=== PATIENT | male | born 1995 | race Caucasian/White ===

== ENCOUNTER → 2016-07-20 | Outpatient (CLI) | payer OTHER, BC ==
[~2016-07-20] MED LIST: ESCI1TAB10 PO; HYDR1CAP85 PO; IBUP-1050 PO; PRLSR20 PO; PSEU-170 PO
--- NOTE | 2016-07-20 14:14 | DIAGNOSTIC IMAGING REPORT ---
LEFT HAND 3 VIEWS HISTORY: DORSAL HAND/FINGER PAIN COMPARISON: None. FINDINGS: There is no fracture or dislocation. No erosions identified. Mild soft tissue swelling within the dorsum of the hand and index finger. No radiopaque foreign bodies. IMPRESSION: Mild soft tissue swelling. No fractures. Electronically signed by: Freddy Godinez M.D. 07/20/2016 2:13 PM Dictated Date/Time: 07/20/2016 2:12 PM
== END | disposition home or self-care (01) ==
LOC: C.RAD1850 13:52
PROVIDERS: ATTEND Nurse Practitioner Adult Health
DX: M79.642 Pain in left hand (principal); M79.645 Pain in left finger(s)

== ENCOUNTER 2016-11-20 14:27 | Emergency (ER) | payer BC, OTHER ==
[~2016-11-20] VITALS: Ht 177.8 cm; Wt 112.1 kg
[~2016-11-20 14:27] MED LIST changes: -HYDR1CAP85 PO; -PRLSR20 PO
[2016-11-20 14:29] VITALS: Ht 177.8 cm; Wt 112.1 kg
[2016-11-20] MEDS ORDERED: SODIUM CHLORIDE 0.9% 1000ML 1,000 ML IV STA (14:36)
[2016-11-20] MEDS ORDERED: LORAZEPAM 1 MG TAB SL STA (14:45)
--- NOTE | 2016-11-20 14:45 | EMERGENCY ROOM VISIT NOTE ---
History Report prepared by Ryley: Emilie Mata Under the Supervision of: Dr. Jelena Oliveros M.D. First contact with patient: 14:32 Chief Complaint: CHEST PAIN Stated Complaint: CHEST AND ARM PAIN Nursing Triage Summary: pt to the ED with c/o chest pain and epigastric pain, was concerned that it was anxiety or gas History of Present Illness The patient is a 21 year old male who presents to the Emergency Room with complaints of constant chest pain beginning 3 days ago. The patient states that he has been having intermittent chest pain that is constant but occasionally worsens with eating. He reports that the pain is in the center of his chest and he has some epigastric pain pain as well. He notes that the pain feels like it could be from gas or anxiety. The patient notes that the pain sometimes causes his to feel dizzy. He complains of stomach gurgling and denies any nausea, swelling in the legs, urinary symptoms, changes in bowel movements, and shortness of breath. He reports that last time he was seen here he had a RBBB. He notes a history of anxiety but does not take any medication for his anxiety. The patient states that he used to smoke and quit 1 year ago. He reports that his anxiety has been more severe lately and he has been over thinking all of his problems. Source of History: patient Onset: 3 days ago Position: chest Timing: constant Associated Symptoms: No SOB, No nausea, No urinary symptoms Note: He complains of anxiety, epigastric pain and stomach gurgling. He denies any swelling in the legs,changes in bowel movements. Review of Systems See HPI for pertinent positives & negatives. A total of 10 systems reviewed and were otherwise negative. Past Medical & Surgical Medical Problems: (1) Acute Pharyngitis (2) Anxiety (3) Asthma (4) Depressive Disorder Nec (5) Hypertension Family History Diabetes mellitus FHx: heart disease Hypertension Lung disease Social History Smoking Status: Former Smoker Alcohol Use: none Drug Use: none Housing Status: lives with family Occupation Status: unemployed Current/Historical Medications Scheduled Omeprazole (Prilosec), 20 MG PO DAILY Scheduled PRN Hydroxyzine Pamoate (Vistaril), 25-50 MG PO DAILY PRN for Anxiety/Insomnia Allergies Coded Allergies: No Known Allergies (Unverified , 11/20/16) Physical Exam Vital Signs Date Time Temp Pulse Resp B/P (MAP) Pulse Ox O2 Delivery O2 Flow Rate FiO2 11/20/16 18:05 36.7 86 18 149/77 98 11/20/16 18:04 86 18 149/77 11/20/16 16:39 78 18 132/69 98 Room Air 11/20/16 14:43 102 11/20/16 14:29 36.7 126 18 157/102 99 Room Air Physical Exam Vital signs reviewed. General: Well-appearing male, in no significant distress. HEENT: No scleral icterus, PERRLA, neck supple. Atraumatic. Cardiovascular: Slightly tachycardic rate and regular rhythm, no extra sounds. Pulmonary: Clear to auscultation bilaterally, normal work of breathing. Abdomen: Soft, nontender, nondistended, positive bowel sounds. Musculoskeletal: Atraumatic, no peripheral edema. Neurologic: Patient awake alert and oriented x 3, full strength in all 4 extremities. Cranial nerves 2 through 12 grossly intact. Skin: Warm, dry, no rash Medical Decision & Procedures ER Provider Diagnostic Interpretation: Radiology results as stated below per my review and radiologist interpretation: ULTRASOUND RIGHT UPPER QUADRANT ABDOMEN FINDINGS: Liver: The liver is normal in size and echotexture. There is no intrahepatic biliary ductal dilatation. The main portal vein is patent. Gallbladder: The gallbladder is normal in appearance. No gallstones are identified. There is no gallbladder wall thickening or pericholecystic fluid. A sonographic Bruce's sign is reportedly absent. The common bile duct measures up to 0.3 cm in diameter. Pancreas: Partially imaged portions of the pancreatic head are normal in appearance. The majority of the pancreas was not well visualized. The splenic vein is patent. Right kidney: Survey images of the right kidney demonstrate normal size and echotexture. There is no hydronephrosis. Ascites: None. IMPRESSION: Unremarkable sonographic assessment of the right upper quadrant. No gallstones are identified. Electronically signed by: Kj Lew M.D. 11/20/2016 4:40 PM Dictated Date/Time: 11/20/2016 4:39 PM ULTRASOUND RIGHT UPPER QUADRANT ABDOMEN FINDINGS: Liver: The liver is normal in size and echotexture. There is no intrahepatic biliary ductal dilatation. The main portal vein is patent. Gallbladder: The gallbladder is normal in appearance. No gallstones are identified. There is no gallbladder wall thickening or pericholecystic fluid. A sonographic Bruce's sign is reportedly absent. The common bile duct measures up to 0.3 cm in diameter. Pancreas: Partially imaged portions of the pancreatic head are normal in appearance. The majority of the pancreas was not well visualized. The splenic vein is patent. Right kidney: Survey images of the right kidney demonstrate normal size and echotexture. There is no hydronephrosis. Ascites: None. IMPRESSION: Unremarkable sonographic assessment of the right upper quadrant. No gallstones are identified. Electronically signed by: Kj Lew M.D. 11/20/2016 4:40 PM Dictated Date/Time: 11/20/2016 4:39 PM Laboratory Results 11/20/16 15:25 Red Blood Count 5.61, Mean Corpuscular Volume 82.0, Mean Corpuscular Hemoglobin 29.2, Mean Corpuscular Hemoglobin Concent 35.7, Mean Platelet Volume 10.5, Neutrophils (%) (Auto) 55.1, Lymphocytes (%) (Auto) 31.4, Monocytes (%) (Auto) 7.3, Eosinophils (%) (Auto) 4.9, Basophils (%) (Auto) 0.8, Neutrophils # (Auto) 4.13, Lymphocytes # (Auto) 2.36, Monocytes # (Auto) 0.55, Eosinophils # (Auto) 0.37, Basophils # (Auto) 0.06 11/20/16 15:25 Test 11/20/16 15:25 11/20/16 15:32 White Blood Count 7.51 K/uL (4.8-10.8) Red Blood Count 5.61 M/uL (4.7-6.1) Hemoglobin 16.4 g/dL (14.0-18.0) Hematocrit 46.0 % (42-52) Mean Corpuscular Volume 82.0 fL (80-100) Mean Corpuscular Hemoglobin 29.2 pg (25-34) Mean Corpuscular Hemoglobin Concent 35.7 g/dl (32-36) Platelet Count 235 K/uL (130-400) Mean Platelet Volume 10.5 fL (7.4-10.4) Neutrophils (%) (Auto) 55.1 % Lymphocytes (%) (Auto) 31.4 % Monocytes (%) (Auto) 7.3 % Eosinophils (%) (Auto) 4.9 % Basophils (%) (Auto) 0.8 % Neutrophils # (Auto) 4.13 K/uL (1.4-6.5) Lymphocytes # (Auto) 2.36 K/uL (1.2-3.4) Monocytes # (Auto) 0.55 K/uL (0.11-0.59) Eosinophils # (Auto) 0.37 K/uL (0-0.5) Basophils # (Auto) 0.06 K/uL (0-0.2) RDW Standard Deviation 37.5 fL (36.4-46.3) RDW Coefficient of Variation 12.5 % (11.5-14.5) Immature Granulocyte % (Auto) 0.5 % Immature Granulocyte # (Auto) 0.04 K/uL (0.00-0.02) Anion Gap 7.0 mmol/L (3-11) Est Creatinine Clear Calc Drug Dose 148.0 ml/min Estimated GFR () 125.7 Estimated GFR (Non- 108.4 BUN/Creatinine Ratio 11.6 (10-20) Calcium Level 9.1 mg/dl (8.5-10.1) Total Bilirubin 0.5 mg/dl (0.2-1) Direct Bilirubin 0.2 mg/dl (0-0.2) Aspartate Amino Transf (AST/SGOT) 21 U/L (15-37) Alanine Aminotransferase (ALT/SGPT) 48 U/L (12-78) Alkaline Phosphatase 95 U/L (45-117) Total Protein 7.6 gm/dl (6.4-8.2) Albumin 4.2 gm/dl (3.4-5.0) Lipase 136 U/L (73-393) Bedside D-Dimer 70 ng/mlFEU (0-450) Bedside Troponin I < 0.030 ng/ml (0-0.045) Laboratory results per my review. Medications Administered Medications (Trade) Dose Ordered Sig/Heri Route Start Time Stop Time Status Last Admin Dose Admin Sodium Chloride 1,000 ml @ 150 mls/hr [id number] STAT IV 11/20/16 14:36 11/20/16 18:39 DC 11/20/16 15:41 150 MLS/HR Lorazepam (Ativan Tab) 1 mg NOW STAT SL 11/20/16 14:45 11/20/16 14:46 DC 11/20/16 15:41 1 MG ECG Indication: chest pain Rate (beats per minute): 107 Rhythm: sinus tachycardia Findings: nonspecific-ST abn, RBBB (incomplete), T-wave inversion (Inferior) Comparison ECG Date: 2013 Change: no significant change ED Course 1432: Past medical records reviewed. The patient was evaluated in room A2. A complete history and physical examination was performed. 1436: Sodium Chloride 1000 ml @ 150 mls/hr IV, Ativan Tab 1mg SL. 1718: I reevaluated and updated the patient. 1720: Upon reevaluation, the patient appeared to have improvement of his symptoms. I discussed findings with the patient. He verbalized agreement of the treatment plan. The patient was discharged home. Medical Decision Differential diagnosis: Acute cholecystitis, esophageal reflux, acute coronary syndrome, pulmonary embolus, aortic dissection, musculoskeletal pain, pneumonia, pleural effusion, pneumothorax This patient was evaluated and appeared to be in no significant distress. Laboratory work is fairly unrevealing. Ultrasound gallbladder reveals no evidence of acute cholecystitis. Patient seemed to have improvement after Ativan and IV hydration. The patient seems to have an anxiety disorder that may not be well managed. He states he has not discussed his situation with his primary care physician. Patient's symptoms are likely secondary to GERD. Patient was educated on his dietary behaviors, medications to avoid. He will start Prilosec 20 mg daily, given a 30 day supply. He was also given Vistaril. He was encouraged to follow-up with his PCP in the next week to discuss his anxiety and chest discomfort. He will return to the ER for worsening of symptoms or any medical concerns. Medication Reconcilliation Current Medication List: was personally reviewed by me Blood Pressure Screening Patient's blood pressure: Elevated blood pressure Blood pressure disposition: Elevated BP felt to be situational Impression Primary Impression: Non-cardiac chest pain Scribe Attestation The scribe's documentation has been prepared under my direction and personally reviewed by me in its entirety. I confirm that the note above accurately reflects all work, treatment, procedures, and medical decision making performed by me. Departure Information Dispostion Home / Self-Care Prescriptions Hydroxyzine Pamoate (VISTARIL) 25 Mg Cap 25-50 MG PO DAILY Y for Anxiety/Insomnia, #60 CAP Prov: Jelena Oliveros M.D. 11/20/16 Omeprazole (PRILOSEC) 20 Mg Capcr 20 MG PO DAILY, #30 CAP Prov: Jelena Oliveros M.D. 11/20/16 Referrals Sebastien Pugh D.O.Int.Med. (PCP) Forms HOME CARE DOCUMENTATION FORM, IMPORTANT VISIT INFORMATION Patient Instructions My [facility] Additional Instructions Diagnosis: Non-cardiac chest pain Prilosec 20 mg daily. Vistaril 25-50 mg every 6 hours as needed for anxiety. Avoid greasy, spicy foods. Avoid alcohol, coffee, soda. Avoid aspirin, aleve and ibuprofen. Follow up with your PCP this week, please discuss your anxiety issues at that time. Return to the ED for worsening of symptoms or any medical concerns.
--- NOTE | 2016-11-20 15:03 | DIAGNOSTIC IMAGING REPORT ---
CHEST ONE VIEW PORTABLE CLINICAL HISTORY: chest pain pain COMPARISON STUDY: 09/12/2014 FINDINGS: The bones soft tissues and hemidiaphragms are normal. The cardiomediastinal silhouette is normal. The lungs are clear. The pulmonary vasculature is normal. IMPRESSION: Negative chest. The above report was generated using voice recognition software. It may contain grammatical, syntax or spelling errors. Electronically signed by: Renzo Garza M.D. 11/20/2016 3:02 PM Dictated Date/Time: 11/20/2016 3:01 PM
[2016-11-20 15:38] LABS: BASO % 0.8 %; BASO ABS # 0.06 K/uL (0-0.2); COMPLETE YES; EOS % 4.9 %; IG% 0.5 %; LYMPH % 31.4 %; LYMPH ABS # 2.36 K/uL (1.2-3.4); MEAN CORPUSCULAR HEMOGLOBIN 29.2 pg (25-34); MEAN CORPUSCULAR HGB CONC 35.7 g/dl (32-36); MEAN PLATELET VOLUME 10.5 fL (7.4-10.4); MONO % 7.3 %; NEUT % 55.1 %; PLATELET COUNT 235 K/uL (130-400); RED BLOOD COUNT 5.61 M/uL (4.7-6.1); WHITE BLOOD COUNT 7.51 K/uL (4.8-10.8)
[2016-11-20 15:52] LABS: POINT OF CARE TROPONIN I < 0.030 ng/ml (0-0.045)
[2016-11-20 16:05] LABS: BUN/CREATININE RATIO 11.6 (10-20); CALCIUM 9.1 mg/dl (8.5-10.1); CREATININE 0.99 mg/dl (0.60-1.40); POTASSIUM 3.7 mmol/L (3.5-5.1)
--- NOTE | 2016-11-20 16:41 | DIAGNOSTIC IMAGING REPORT ---
ULTRASOUND RIGHT UPPER QUADRANT ABDOMEN CLINICAL HISTORY: Epigastric abdominal pain. COMPARISON STUDY: No priors. TECHNIQUE: Real-time, grayscale, and color flow sonography of the right upper quadrant of the abdomen was performed. Images are reviewed in the transverse and longitudinal planes. FINDINGS: Liver: The liver is normal in size and echotexture. There is no intrahepatic biliary ductal dilatation. The main portal vein is patent. Gallbladder: The gallbladder is normal in appearance. No gallstones are identified. There is no gallbladder wall thickening or pericholecystic fluid. A sonographic Bruce's sign is reportedly absent. The common bile duct measures up to 0.3 cm in diameter. Pancreas: Partially imaged portions of the pancreatic head are normal in appearance. The majority of the pancreas was not well visualized. The splenic vein is patent. Right kidney: Survey images of the right kidney demonstrate normal size and echotexture. There is no hydronephrosis. Ascites: None. IMPRESSION: Unremarkable sonographic assessment of the right upper quadrant. No gallstones are identified. Electronically signed by: Kj Lew M.D. 11/20/2016 4:40 PM Dictated Date/Time: 11/20/2016 4:39 PM
[2016-11-20] MEDS ORDERED: HYDR1CAP85 PO (17:18)
[2016-11-20] MEDS ORDERED: PRLSR20 PO (17:18)
[2016-11-20 18:05] VITALS: BP 149/77; PULSE 86; TEMP 36.7; O2SAT 98
== END 2016-11-20 18:06 | disposition home or self-care (01) ==
LOC: C.EDB 14:28 → C.EDA 18:06
DX: R07.89 Other chest pain (principal); J45.909 Unspecified asthma, uncomplicated; I10 Essential (primary) hypertension; Z87.891 Personal history of nicotine dependence; Z83.3 Family history of diabetes mellitus; Z82.49 Family history of ischemic heart disease and other diseases of the circulatory system